=== PATIENT | male | born 1960 ===

== ENCOUNTER 2024-04-06 05:00 | Day surgery (SDC) | payer OTHER ==
[2024-03-30 12:11] LABS: PH,URINE 7.5 (5.0-8.0); URINE APPEARANCE Cloudy; URINE BILIRRUBIN Negative (NEGATIVE); URINE BLOOD Negative; URINE COLOR Dark Yellow; URINE GLUCOSE Negative (NEGATIVE); URINE KETONE Negative (NEGATIVE); URINE LEUKOCYTE Trace; URINE NITRATE Negative; URINE PROTEIN Negative (NEGATIVE); URINE UROBILINOGEN 0.2 E.U./dl
[2024-03-30 12:13] LABS: URINE BACTERIA 13.8 uL (0.0-1933); URINE RBC 6.4 uL (0.0-20.8); URINE WBC 11.5 uL (0.0-23.2)
[2024-03-30 12:14] LABS: URINE EPITHELIAL CELLS 0.3 uL (0.0-38.8)
[2024-03-30 12:33] LABS: HEMATOCRIT 43.6 % (39.0-48.0); MEAN CELL VOLUME 97.7 fL (80.0-100.00); MEAN CORPUSCULAR HEMOGLOBIN 33.8 pg (27.00-32.0); MEAN CORPUSCULAR HGB CONC 34.5 g/dl (32.0-36.0); PLATELET COUNT 213 K/uL (150-450); RED BLOOD COUNT 4.46 M/uL (4.00-6.00); RED CELL DISTRIBUTION WIDTH 12.9 % (11.5-14.5)
[2024-03-30 12:35] LABS: INR 1.05; PARTIAL THROMBOPLASTIN TIME 28.6 SECONDS (22.0-34.0); PROTHROMBIN TIME 11.4 SECONDS (9.0-11.5)
[2024-03-30 13:13] LABS: ALBUMIN 4.2 gm/dL (3.4-5.0); BILIRUBIN TOTAL 0.65 mg/dL (0.3-1.2); CALCIUM 9.1 mg/dL (8.5-10.1); CREATININE SERUM 0.84 mg/dL (0.70-1.30); GFR 92.29; GLOBULINA 2.8 G/DL (2.4-3.5); POTASSIUM 4.27 mEq/L (3.5-5.1); TSH 0.409 uIU/mL (0.358-3.74)
[~2024-04-06 05:00] MED LIST: ALTACE1.25 MG; CYMBALTA20 MG; NAMENDA1 EACH; ZETIA10 MG; [UNRECOGNIZED DRUG - OTHER]
[2024-04-06] MEDS ORDERED: BUPIVACAINE HCL/MPF 0.5% 30ML VIAL ONE (07:01)
[2024-04-06] MEDS ORDERED: CEFAZOLIN SODIUM 1,000 MG VIAL IV ONE (08:30)
[2024-04-06] MEDS ORDERED: CEFAZOLIN SODIUM 1,000 MG VIAL IV SCH (10:00)
[2024-04-06] MEDS ORDERED: FAMOTIDINE/PF 20 MG/10 ML SYRINGE IV SCH (10:00)
[2024-04-06] MEDS ORDERED: MORPHINE SULFATE 4 MG/ML VIAL IV ONE ×2 (10:05→11:00)
[2024-04-06] MEDS ORDERED: CEFAZOLIN SODIUM 1,000 MG VIAL ONE (10:50)
[2024-04-06] MEDS ORDERED: FAMOTIDINE/PF 20 MG/2 ML VIAL ONE (10:50)
== END 2024-04-06 12:20 | disposition home or self-care (01) ==
LOC: CIR.AMB 05:00
PROVIDERS: ATTEND Specialist
DX: K40.90 Unilateral inguinal hernia, without obstruction or gangrene, not specified as recurrent (principal); I10 Essential (primary) hypertension; E03.9 Hypothyroidism, unspecified